=== PATIENT | male | born 1945 | race Caucasian/White ===

== ENCOUNTER → 2016-10-28 | Outpatient (CLI) | payer MEDICARE, BC ==
--- NOTE | 2016-10-28 22:30 | RADRPT ---
PROCEDURE: XR Knees. CLINICAL INDICATION: Bilateral knee pain. TECHNIQUE: Total of eight views. Weightbearing frontal, oblique, and lateral views of the both kn ees. Patellar views of both knees. COMPARISON: No prior study is available for comparison. FINDINGS: There is no fracture or dislocation. There are small bilateral knee joint effusions. The soft tissues are otherwise normal. There are degenerative changes with osteophytes arising from all 3 joint compartment margins. There is bilateral medial joint compartment narrowing. There is no lytic or blastic lesion. There is no radiopaque foreign body. IMPRESSION: 1. Moderate degenerative changes of both knees. 2. Small bilateral knee joint effusions. RPTAT: QQ .Kenny Prado MD, MD Date Time Electronically viewed and signed by .Kenny Prado MD, on 10/28/2016 22:30 .R/
--- NOTE | 2016-10-28 22:31 | RADRPT ---
PROCEDURE: XR Left Hip and pelvis. CLINICAL INDICATION: Left hip pain. Pelvic pain. Postop. TECHNIQUE: Three views. Frontal pelvis. Frontal and lateral left hip. COMPARISON: No prior studies are available for comparison. FINDINGS: There is no fracture or dislocation. The soft tissues are normal. There is a left hip total arthroplasty which appears satisfactory. The right hip is grossly normal. There is no lytic or blastic lesion. The upper pelvis is not included on the image. IMPRESSION: 1. Satisfactory postoperative appearance of the left hip. 2. Otherwise unremarkable study. RPTAT: QQ .Kenny Prado MD, MD Date Time Electronically viewed and signed by .Kenny Prado MD, on 10/28/2016 22:30 .R/
== END | disposition home or self-care (01) ==
LOC: HKI 10:06
PROVIDERS: ATTEND Orthopaedic Surgery
DX: M17.0 Bilateral primary osteoarthritis of knee (principal); I10 Essential (primary) hypertension; Z96.642 Presence of left artificial hip joint; Z79.82 Long term (current) use of aspirin
CPT/HCPCS: 73502; 73564; G0463